=== PATIENT | female | born 1950 | race Hispanic/Latino ===

== ENCOUNTER 2023-09-14 12:26 | Observation (INO) | payer OTHER ==
--- NOTE | 2023-09-14 13:33 | RAD REPORT ---
EXAM DESCRIPTION: RAD - Chest Single View - 09/14/2023 1:23 pm CLINICAL HISTORY: CHEST PAIN COMPARISON: No comparisons FINDINGS: Lines: None. Lungs: Ill-defined opacities present at the lung bases bilaterally. Pleural: Blunting at the right costophrenic angle. Cardiac: Heart size at upper limits of normal. Mediastinum: Within normal limits. Bones: No acute fractures. Other: None IMPRESSION: Nonspecific mild ill-defined basilar opacities could reflect an acute infectious or infl ammatory process versus chronic changes. No priors available for comparison.
--- NOTE | 2023-09-14 13:35 | RAD REPORT ---
EXAM DESCRIPTION: CT - Head Brain Wo Cont - 09/14/2023 1:23 pm CLINICAL HISTORY: SYNCOPE COMPARISON: No comparisons TECHNIQUE: All CT scans are performed using dose optimization technique as appropriate and may inclu de automated exposure control or mA/KV adjustment according to patient size. FINDINGS: No intracranial hemorrhage, hydrocephalus or extra-axial fluid collection.No areas of brai n edema or evidence of midline shift. Procedural changes at the right globe. The paranasal sinuses and mastoids are clear. The calvarium is intact. IMPRESSION: No acute intracranial abnormality.
[2023-09-14] MEDS ORDERED: ONDANSETRON 4 MG/2 ML VIAL ONE (13:39)
[2023-09-14] MEDS ORDERED: FAMOTIDINE 20 MG/2 ML VIAL IV ONE (13:39)
[2023-09-14] MEDS ORDERED: NA CHLORIDE 0.9% 1,000 ML ONE (13:40)
[2023-09-14 13:43] LABS: Absolute Basophils 0.1 K/uL (0-0.5); Absolute Eosinophils 0.3 K/uL (0-0.5); Absolute Neutrophil 11.9 K/uL (1.8-8.0); Basophils % 0.7 % (0-1.3); Eosinophils % 2.2 % (0-4.4); Hematocrit 37.8 % (36.0-45.0); Hemoglobin 12.1 g/dL (12.0-15.0); MCH 26.8 pg (27.0-35.0); MCV 83.7 fL (80-100); MPV 8.3 fL (7.6-11.3); Monocytes % 6.6 % (3.3-12.3); Neutrophils % 77.5 % (41.7-73.7); Platelets 231 thou/uL (152-406); RBC Red Blood Cell Count 4.52 M/uL (3.86-4.86)
[2023-09-14 13:57] LABS: PT Prothrombin Time 11.8 SECONDS (9.4-12.5); Protime INR 1.06
[2023-09-14 14:00] LABS: Albumin 3.5 g/dL (3.4-5.0); Albumin/Globulin Ratio 0.9 (1.1-1.8); Anion Gap 11.1 mEq/L (5.0-15.0); Bilirubin Direct 0.3 mg/dL (0-0.2); Bilirubin Indirect, Calculated 0.4 mg/dL (0.2-0.8); Bilirubin Total 0.7 mg/dL (0.2-1.0); Globulin 3.9 g/dL (2.3-3.5); Magnesium 1.7 mg/dL (1.6-2.4); Potassium 3.1 mEq/L (3.5-5.1); Protein, Total 7.4 g/dL (6.4-8.2)
--- NOTE | 2023-09-14 14:52 | EDPHYS ---
Physician Documentation [facility] Name: Kinga Alfredo Age: 72 yrs Sex: Female : 1950 Arrival Date: 09/14/2023 Time: 12:26 Bed 16 Private MD: ED Physician Richard Ferris HPI: 09/13 14:46 This 72 yrs old Female presents to ER via EMS with complaints of syncope , sp elham cpr, weak. 14:46 got overheated , syncope, family did compressions. The patient has experienced syncope, elham The patient has experienced near-syncope. Onset: The symptoms/episode began/occurred just prior to arrival. Duration: This was a single episode, that lasted an unknown period of time. Context: the episode(s) was witnessed, by family. Associated injury: The patient did not suffer any apparent associated injury. Associated signs and symptoms: Pertinent positives: lightheadedness, vomiting, weakness. Severity of symptoms: At their worst the symptoms were moderate in the emergency department the symptoms have improved moderately. The patient has not experienced similar symptoms in the past. Historical: - Allergies: 16:24 No Known Allergies; ph - PMHx: 12:44 Diabetes mellitus; Hypertensive disorder; ph - Immunization history:: Adult Immunizations unknown. - Infectious Disease History:: Denies. - Social history:: Smoking status: unknown. - Family history:: not pertinent. ROS: 14:46 Constitutional: Negative for fever, chills, and weight loss, Eyes: Negative for injury, elham pain, redness, and discharge, ENT: Negative for injury, pain, and discharge, Neck: Negative for injury, pain, and swelling, Cardiovascular: Negative for chest pain, palpitations, and edema, Respiratory: Negative for shortness of breath, cough, wheezing, and pleuritic chest pain, Abdomen/GI: Negative for abdominal pain, nausea, vomiting, diarrhea, and constipation, Back: Negative for injury and pain, : Negative for injury, bleeding, discharge, and swelling, MS/Extremity: Negative for injury and deformity, Skin: Negative for injury, rash, and discoloration, Psych: Negative for depression, anxiety, suicide ideation, homicidal ideation, and hallucinations, Allergy/Immunology: Negative for hives, rash, and allergies, Endocrine: Negative for neck swelling, polydipsia, polyuria, polyphagia, and marked weight changes, Hematologic/Lymphatic: Negative for swollen nodes, abnormal bleeding, and unusual bruising, 14:46 Neuro: Positive for syncope, near syncope, weakness, Exam: 14:46 Constitutional: This is a well developed, well nourished patient who is awake, alert, elham and in no acute distress. Head/Face: Normocephalic, atraumatic. Eyes: Pupils equal round and reactive to light, extra-ocular motions intact. Lids and lashes normal. Conjunctiva and sclera are non-icteric and not injected. Cornea within normal limits. Periorbital areas with no swelling, redness, or edema. ENT: Nares patent. No nasal discharge, no septal abnormalities noted. Tympanic membranes are normal and external auditory canals are clear. Oropharynx with no redness, swelling, or masses, exudates, or evidence of obstruction, uvula midline. Mucous membranes moist. Neck: Trachea midline, no thyromegaly or masses palpated, and no cervical lymphadenopathy. Supple, full range of motion without nuchal rigidity, or vertebral point tenderness. No Meningismus. Chest/axilla: Normal chest wall appearance and motion. Nontender with no deformity. No lesions are appreciated. Cardiovascular: Regular rate and rhythm with a normal S1 and S2. No gallops, murmurs, or rubs. Normal PMI, no JVD. No pulse deficits. Respiratory: Lungs have equal breath sounds bilaterally, clear to auscultation and percussion. No rales, rhonchi or wheezes noted. No increased work of breathing, no retractions or nasal flaring. Abdomen/GI: Soft, non-tender, with normal bowel sounds. No distension or tympany. No guarding or rebound. No evidence of tenderness throughout. Back: No spinal tenderness. No costovertebral tenderness. Full range of motion. Female : Normal external genitalia. Skin: Warm, dry with normal turgor. Normal color with no rashes, no lesions, and no evidence of cellulitis. MS/ Extremity: Pulses equal, no cyanosis. Neurovascular intact. Full, normal range of motion. Neuro: Awake and alert, GCS 15, oriented to person, place, time, and situation. Cranial nerves II-XII grossly intact. Motor strength 5/5 in all extremities. Sensory grossly intact. Cerebellar exam normal. Normal gait. Psych: Awake, alert, with orientation to person, place and time. Behavior, mood, and affect are within normal limits. 14:46 Musculoskeletal/extremity: DVT Exam: No signs of deep vein thrombosis. no pain, no swelling, no tenderness, negative Homans' sign noted on exam, no appreciated bluish discoloration, no erythema, no increased warmth, 14:55 ECG was reviewed by the Attending Physician. elham Vital Signs: 12:40 BP 117 / 56; Pulse 79; Resp 18; Temp 96.8; Pulse Ox 100% on R/A; ph 14:00 BP 122 / 73; Pulse 70; Resp 18; Pulse Ox 98% on R/A; ph 15:00 BP 129 / 59; Pulse 68; Resp 16; Pulse Ox 99% on R/A; ph 16:00 BP 123 / 58; Pulse 79; Resp 16; Pulse Ox 99% on R/A; ph NIH Stroke Scale Scores: 14:46 NIHSS Score: 0 elham MDM: 12:34 Patient medically screened. elham 12:35 Patient medically screened. elham 14:48 Differential Diagnosis altered mental status, sepsis, flu. Differential Diagnosis: elham aortic aneurysm, cardiac arrhythmia, cerebrovascular accident, emotional response, GI bleed, idiopathic syncope, pseudo seizure, seizure, sepsis, transient ischemic attack, vasovagal episode. Data reviewed: vital signs, nurses notes, lab test result(s), EKG, radiologic studies, CT scan, plain films. Consideration of Admission/Observation Patient was admitted/placed on observation. Escalation of care including admission/observation considered. I considered the following discharge prescriptions or medication management in the emergency department Medications were administered in the Emergency Department. See MAR. Independent interpretation of the following test(s) in the Emergency Department EKG: See my EKG interpretation above. Test considered but Not performed: MRI: no mri brain. 09/13 12:38 Order name: Basic Metabolic Panel; Complete Time: 14:28 [facility] 09/13 12:38 Order name: CBC with Diff; Complete Time: 14:28 [facility] 09/13 12:38 Order name: LFT's; Complete Time: 14:28 [facility] 09/13 12:38 Order name: Magnesium; Complete Time: 14:28 [facility] 09/13 12:38 Order name: NT PRO-BNP; Complete Time: 14:28 [facility] 09/13 12:38 Order name: PT-INR; Complete Time: 14:28 [facility] 09/13 12:38 Order name: Troponin HS; Complete Time: 14:28 [place] 09/13 12:38 Order name: Lipase; Complete Time: 14:28 [place] 09/13 12:38 Order name: CPK; Complete Time: 14:28 [place] 09/13 12:38 Order name: Urinalysis w/ reflexes elham 09/13 14:44 Order name: Blood Culture Adult (2) elham 09/13 16:55 Order name: T4 Free EDMS 09/13 16:55 Order name: Thyroid Stimulating Hormone EDMS 09/13 16:55 Order name: Urinalysis w/ reflexes EDMS 09/13 16:55 Order name: Basic Metabolic Panel EDMS 09/13 16:55 Order name: Basic Metabolic Panel EDMS 09/13 16:55 Order name: CBC with Automated Diff EDMS 09/13 16:55 Order name: CBC with Automated Diff EDMS 09/13 16:55 Order name: Lipid Profile EDMS 09/13 16:55 Order name: Lipid Profile EDMS 09/13 16:55 Order name: Magnesium EDMS 09/13 16:55 Order name: Magnesium EDMS 09/13 16:55 Order name: Phosphorus EDMS 09/13 16:55 Order name: Phosphorus EDMS 09/13 16:55 Order name: Troponin High Sensitivity EDMS 09/13 16:55 Order name: Troponin High Sensitivity EDMS 09/13 16:55 Order name: Troponin High Sensitivity EDMS 09/13 12:38 Order name: XRAY Chest (1 view); Complete Time: 14:28 [place] 09/13 13:13 Order name: CT Head Brain wo Cont; Complete Time: 14:28 [place] 09/13 14:29 Order name: CT Chest Abdomen Pelvis W/O Contrast elham 09/13 16:55 Order name: Echo with Doppler EDMS 09/13 16:55 Order name: Echo with Doppler EDMS 09/13 12:38 Order name: EKG; Complete Time: 12:39 [place] 09/13 12:38 Order name: Cardiac monitoring; Complete Time: 14:17 [place] 09/13 12:38 Order name: EKG - Nurse/Tech; Complete Time: 14:17 [place] 09/13 12:38 Order name: IV Saline Lock; Complete Time: 14:17 [place] 09/13 12:38 Order name: Labs collected and sent; Complete Time: 14:17 [place] 09/13 12:38 Order name: O2 Per Protocol; Complete Time: 14:17 [facility] 09/13 12:38 Order name: O2 Sat Monitoring; Complete Time: 14:17 [facility] 09/13 14:29 Order name: PO challenge: gatorade; Complete Time: 16:15 [facility] 09/13 14:45 Order name: Misc. Order: get ua; Complete Time: 16:14 [facility] EC:55 Rate is 80 beats/min. Rhythm is regular. QRS [place] is Normal. LA interval is normal. QRS elham interval is normal. QT interval is normal. No Q waves. T waves are Normal. No ST changes noted. Clinical impression: NSR w/ Non-specific ST/T Changes and No evidence of ischemia. Interpreted by me. Reviewed by me. Administered Medications: 14:00 Drug: Famotidine IVP 20 mg IVP once; dilute with 10 mL 0.9% NaCl; give over 2 minutes ph Route: IVP; Site: left forearm; 19:40 Follow up: Response: No adverse reaction al5 19:41 Follow up: Response: No adverse reaction al5 14:00 Drug: Ondansetron IVP 4 mg IVP once; over 2 minutes Route: IVP; Site: left forearm; ph 19:40 Follow up: Response: No adverse reaction al5 14:16 Drug: NS 0.9% IV 1000 ml IV at 1 bolus Per protocol; 1000 mL bolus Route: IV; Rate: 1 ph bolus; Site: left forearm; 19:41 Follow up: Response: No adverse reaction; IV Status: Completed infusion; IV Intake: al5 1000ml 14:17 Not Given (1 liter given by EMS): ns 0.9% 1000 ml IV at 1 bolus Per protocol; 1000 mL ph bolus 16:14 Drug: levofloxacin IVPB 500 mg 100 ml IVPB once over 60 mins Volume: 100 ml; Route: ph IVPB; Infused Over: 60 mins; Site: left forearm; 19:40 Follow up: Response: No adverse reaction; IV Status: Completed infusion; IV Intake: al5 100ml 16:16 Drug: Potassium PO Effervescent Tablet 50 mEq PO once; dissolve in 4 ounces of water or ph juice Route: PO; 19:40 Follow up: Response: No adverse reaction al5 Disposition Summary: 08/07/24 14:52 Hospitalization Ordered Notes: Hospitalization Status: Inpatient Admission elham Provider: Marissa Ledesma cha Location: Telemetry/MedSurg (Inpatient) elham Condition: Fair elham Problem: new elham Symptoms: have improved elham Bed/Room Type: Standard elham Room Assignment: 217(09/14/23 17:34) bd Diagnosis - Heat exhaustion, unspecified elhma - Syncope Near elham - Heat syncope elham - Hypokalemia elham - Elevated white blood cell count elham Forms: - Medication Reconciliation Form elham - SBAR form elham - Leadership Thank You Letter elham NIH Stroke Scale - NIH Stroke Score Date: 09/14/2023 Time: 14:46 Total Score = 0 10. Dysarthria (speech clarity - read or repeat words) - 0(Normal) 11. Extinction and Inattention (visual/tactile/auditory/spatial/personal) - 0(No abnormality) 1a. Level of Consciousness (LOC) - 0(Alert) 1b. Level of Consciousness (LOC) (Month \T\ Age) - 0(Both) 1c. LOC Commands (Open \T\ Closes Eyes/Senior Software Quality Analyst) - 0(Both) 2. Best Gaze (Lateral Gaze Paresis) - 0(Normal) 3. Visual Field Loss - 0(No visual loss) 4. Facial Palsy - 0(Normal) 5a. Left Arm: Motor (10-second hold) - 0(No drift) 5b. Right Arm: Motor (10-second hold) - 0(No drift) 6a. Left Leg: Motor (5-second hold - always test supine) - 0(No drift) 6b. Right Leg: Motor (5-second hold - always test supine) - 0(No drift) 7. Limb Ataxia (finger/nose \T\ heel/ingram - test with eyes open) - 0(Absent) 8. Sensory Loss (pinprick arms/legs/face) - 0(Normal) 9. Best Language: Aphasia (description/naming/reading) - 0(No aphasia) Initials: elham Signatures: Dispatcher [employer] EDMS Krissy Engle Corey, MD MD cha Hall, Patricia, RN RN Lindsay Montes RN al5 Corrections: (The following items were deleted from the chart) 13:14 13:14 Head Brain Wo [id number].BRZ ordered. EDMS EDMS 17:34 14:52 elham bd
--- NOTE | 2023-09-14 14:52 | ER ---
Nurse's Notes [facility] Name: Kinga Alfredo Age: 72 yrs Sex: Female : 1950 Arrival Date: 09/14/2023 Time: 12:26 Bed 16 Private MD: Diagnosis: Heat exhaustion, unspecified;Syncope Near;Heat syncope;Hypokalemia;Elevated white blood cell count Presentation: 09/13 12:40 Chief complaint: EMS states: Had a syncopal episode while working in yard, witnessed by ph family who started compressions on pt, when EMS arrived pt was sitting on couch awake, covered in vomit. Stable VS, BGL 150s, 1 liter NS and 10mg Reglan given. Coronavirus screen: Vaccine status: Patient reports receiving the 2nd dose of the covid vaccine. Ebola Screen: No symptoms or risks identified at this time. Initial Sepsis Screen: Does the patient meet any 2 criteria? No. Patient's initial sepsis screen is negative. Does the patient have a suspected source of infection? No. Patient's initial sepsis screen is negative. Risk Assessment: Do you want to hurt yourself or someone else?. Onset of symptoms was September 14, 2023. 12:40 Method Of Arrival: EMS: [facility] 12:40 Acuity: [place] 3 Triage Assessment: 12:45 General: Appears in no apparent distress. Behavior is cooperative, quiet. Pain: ph Complains of pain in chest. Neuro: Level of Consciousness is obeys commands, lethargic, Oriented to person, place, time, situation, Reports a syncopal episode. Cardiovascular: Capillary refill < 3 seconds in bilateral fingers Patient's skin is warm and dry. Respiratory: Airway is patent Respiratory effort is even, unlabored. GI: Reports nausea, vomiting, Patient currently denies abdominal pain. Historical: - Allergies: 16:24 No Known Allergies; ph - PMHx: 12:44 Diabetes mellitus; Hypertensive disorder; ph - Immunization history:: Adult Immunizations unknown. - Infectious Disease History:: Denies. - Social history:: Smoking status: unknown. - Family history:: not pertinent. Screenin:23 [place] ED Fall Risk Assessment (Adult) History of falling in the last 3 months, ph including since admission Yes- physiologic fall (2 pts) Confusion or Disorientation No (0 pts) Intoxicated or Sedated No (0 pts) Impaired Gait No (0 pts) Mobility Assist Device Used Yes (1 pt) Altered Elimination No (0 pt) Score/Fall Risk Level 3 or more points = High Risk Oriented to surroundings, Maintained a safe environment, Hourly rounding (assess needs \T\ fall precautionary measures) done, Used ambulatory aids as needed (educated on \T\ assisted with). Abuse screen: Denies threats or abuse. Denies injuries from another. Nutritional screening: No deficits noted. Tuberculosis screening: No symptoms or risk factors identified. Assessment: 13:15 General: Appears in no apparent distress. Behavior is calm, cooperative. Pain: Denies ph pain. Neuro: Level of Consciousness is awake, alert, obeys commands, Oriented to person, place, situation. Neuro: Reports a syncopal episode weakness. Cardiovascular: Capillary refill < 3 seconds in bilateral fingers Patient's skin is warm and dry. Respiratory: Airway is patent Respiratory effort is even, unlabored, Respiratory pattern is regular, symmetrical. GI: Parent/caregiver reports the patient having vomiting. Derm: Skin is pink, warm \T\ dry. Musculoskeletal: Circulation, motion, and sensation intact. Range of motion: intact in all extremities. 15:00 Reassessment: Patient appears in no apparent distress at this time. Patient and/or ph family updated on plan of care and expected duration. Pain level reassessed. Patient is alert, oriented x 3, equal unlabored respirations, skin warm/dry/pink. 16:30 Reassessment: Patient appears in no apparent distress at this time. Patient and/or ph family updated on plan of care and expected duration. Pain level reassessed. Patient is alert, oriented x 3, equal unlabored respirations, skin warm/dry/pink. 18:20 Reassessment: Patient appears in no apparent distress at this time. Patient and/or ph family updated on plan of care and expected duration. Pain level reassessed. Patient is alert, oriented x 3, equal unlabored respirations, skin warm/dry/pink. Report faxed to 2nd floor. Vital Signs: 12:40 BP 117 / 56; Pulse 79; Resp 18; Temp 96.8; Pulse Ox 100% on R/A; ph 14:00 BP 122 / 73; Pulse 70; Resp 18; Pulse Ox 98% on R/A; ph 15:00 BP 129 / 59; Pulse 68; Resp 16; Pulse Ox 99% on R/A; ph 16:00 BP 123 / 58; Pulse 79; Resp 16; Pulse Ox 99% on R/A; ph Vitals: 16:00 Cardiac Rhythm Assessment Sinus rhythm. ph NIH Stroke Scale Scores: 14:46 NIHSS Score: 0 [facility] ED Course: 12:34 Patient arrived in ED. elham 12:35 Richard Ferris MD is Attending Physician. elham 12:38 Sara Staples, RN is Primary Nurse. ph 12:44 Triage completed. ph 12:46 Arm band placed on Patient placed in an exam room, on a stretcher. ph 13:24 CT Head Brain wo Cont In Process Unspecified. EDMS 13:25 XRAY Chest (1 view) In Process Unspecified. EDMS 13:30 Initial lab(s) drawn, by me, sent to lab. Maintain EMS IV. Dressing intact. Good blood ph return noted. Site clean \T\ dry. Gauge \T\ site: 18 LFA. IV with fluids infusing freely, with good blood return, Flushed left forearm with 5 ml normal saline. Maintain EMS IV. Dressing intact. Good blood return noted. Site clean \T\ dry. Gauge \T\ site: 18 RAC. IV with fluids infusing freely, with good blood return, Flushed right antecubital with 5 ml normal saline. 14:43 CT Chest Abdomen Pelvis W/O Contrast In Process Unspecified. EDMS 14:51 Marissa Ledesma MD is Hospitalizing Provider. [facility] 14:53 EKG done, by ED staff, reviewed by Richard Ferris MD. em1 15:55 Urine collected: clean catch specimen, kathleen colored. ph 16:24 Patient has correct armband on for positive identification. Bed in low position. Call ph light in reach. Side rails up X2. Placed in gown. Pulse ox on. NIBP on. 16:24 No provider procedures requiring assistance completed. Patient admitted, IV remains in ph place. 19:38 Primary Nurse role handed off by Sara Staples, ALYSSA al5 19:38 Lindsay Montes RN is Primary Nurse. al5 19:38 Provided Education on: need for admission. al5 Administered Medications: 14:00 Drug: Famotidine IVP 20 mg IVP once; dilute with 10 mL 0.9% NaCl; give over 2 minutes ph Route: IVP; Site: left forearm; 19:40 Follow up: Response: No adverse reaction al5 19:41 Follow up: Response: No adverse reaction al5 14:00 Drug: Ondansetron IVP 4 mg IVP once; over 2 minutes Route: IVP; Site: left forearm; ph 19:40 Follow up: Response: No adverse reaction al5 14:16 Drug: NS 0.9% IV 1000 ml IV at 1 bolus Per protocol; 1000 mL bolus Route: IV; Rate: 1 ph bolus; Site: left forearm; 19:41 Follow up: Response: No adverse reaction; IV Status: Completed infusion; IV Intake: al5 1000ml 14:17 Not Given (1 liter given by EMS): ns 0.9% 1000 ml IV at 1 bolus Per protocol; 1000 mL ph bolus 16:14 Drug: levofloxacin IVPB 500 mg 100 ml IVPB once over 60 mins Volume: 100 ml; Route: ph IVPB; Infused Over: 60 mins; Site: left forearm; 19:40 Follow up: Response: No adverse reaction; IV Status: Completed infusion; IV Intake: al5 100ml 16:16 Drug: Potassium PO Effervescent Tablet 50 mEq PO once; dissolve in 4 ounces of water or ph juice Route: PO; 19:40 Follow up: Response: No adverse reaction al5 Medication: 16:24 VIS not applicable for this client. ph Intake: 19:40 IV: 100ml; Total: 100ml. al5 19:41 IV: 1000ml; Total: 1100ml. al5 Outcome: 14:52 Decision to Hospitalize by Provider. elham 19:38 Admitted to Med/surg accompanied by benja, via wheelchair, room 217, with chart, al5 19:38 Condition: good 19:38 Instructed on the need for admit, 19:41 Patient left the ED. al5 NIH Stroke Scale - NIH Stroke Score Date: 09/14/2023 Time: 14:46 Total Score = 0 10. Dysarthria (speech clarity - read or repeat words) - 0(Normal) 11. Extinction and Inattention (visual/tactile/auditory/spatial/personal) - 0(No abnormality) 1a. Level of Consciousness (LOC) - 0(Alert) 1b. Level of Consciousness (LOC) (Month \T\ Age) - 0(Both) 1c. LOC Commands (Open \T\ Closes Eyes/Hand Turner) - 0(Both) 2. Best Gaze (Lateral Gaze Paresis) - 0(Normal) 3. Visual Field Loss - 0(No visual loss) 4. Facial Palsy - 0(Normal) 5a. Left Arm: Motor (10-second hold) - 0(No drift) 5b. Right Arm: Motor (10-second hold) - 0(No drift) 6a. Left Leg: Motor (5-second hold - always test supine) - 0(No drift) 6b. Right Leg: Motor (5-second hold - always test supine) - 0(No drift) 7. Limb Ataxia (finger/nose \T\ heel/ingram - test with eyes open) - 0(Absent) 8. Sensory Loss (pinprick arms/legs/face) - 0(Normal) 9. Best Language: Aphasia (description/naming/reading) - 0(No aphasia) Initials: elham Signatures: Dispatcher [employer] Richard Oneill MD MD cha Martinez, Eric em1 Sara Staples, RN RN Lindsay Montes RN RN al5
--- NOTE | 2023-09-14 14:58 | RAD REPORT ---
EXAM DESCRIPTION: CTChest Abd Pelvis Wo Con - 09/14/2023 2:41 pm CLINICAL HISTORY: Cough;Abdominal distention COMPARISON: Chest Single View dated 09/14/2023; Head Brain Wo Cont dated 09/14/2023 TECHNIQUE: CT of the chest, abdomen, and pelvis was performed. All CT scans are performed using dose optimization technique as appropriate and may include automated exposure control or mA/KV adjustment according to patient size. FINDINGS: Thorax: Chest Wall: No abnormal mass Lungs: Mild dependent atelectasis. No acute process in the lungs. Several small scattered sub 4 mm pu lmonary nodules of doubtful significance. Pleura: No effusions or pneumothorax. Karla/Mediastinum: No lymphadenopathy. Aorta/Pulmonary Arteries: Unremarkable Heart: Normal size. Mild coronary calcifications. Abdomen/Pelvis: Liver: Partial right hepatectomy. Biliary: Cholecystectomy. Biliary duct dilatation is likely related to the postcholecystectomy state. Stomach: No significant focal abnormality. Duodenum: No significant focal abnormality. Pancreas: No significant abnormality. Spleen: No significant abnormality. Adrenal: No suspicious lesions. Kidney/ureter: No hydronephrosis. No renal calculi. Retroperitoneum: No retroperitoneal adenopathy. Vascular: No aneurysm. Mild atherosclerosis . Bowel: Normal appendix. No bowel obstruction.. Diverticulosis without diverticulitis . Peritoneum: No ascites or free air. Bladder: Grossly unremarkable. Reproductive: No adnexal masses. Bones: Grade 2 anterolisthesis of L5 on S1. T11 and likely T9 hemangiomas. Remote sternal fracture. Other: n/a IMPRESSION: No acute findings within the chest, abdomen, or pelvis. Incidental findings as noted abo ve.
[2023-09-14] MEDS ORDERED: POTASSIUM 25 MEQ EFFERV TAB ONE (15:14)
[2023-09-14] MEDS ORDERED: Levofloxacin500mg IV 500 MG/100 ML BAG IV ONE (15:14)
[2023-09-14 16:26] LABS: Specific Gravity 1.015 (1.005-1.030); Sqamous Epithelial <5 /HPF (None Seen); Urine Bacteria None Seen /HPF (<20); Urine Bilirubin NEGATIVE (Negative); Urine Blood Negative (Negative); Urine Clarity Clear (Clear); Urine Color Light-Yellow (Yellow); Urine Culture Reflex Order NOT NEEDED; Urine Glucose NEGATIVE (Negative); Urine Ketones TRACE (Negative); Urine Microscopic Reflex YN ORDER UMIC; Urine Mucus Slight /HPF (None Seen); Urine Nitrite NEGATIVE (Negative); Urine Protein NEGATIVE (Negative); Urine RBC <5 /HPF (None Seen); Urine Urobilinogen Normal (Normal); Urine WBC <5 /HPF (<5); Urine pH 5.5 (5.0-7.0)
[2023-09-14] MEDS ORDERED: ACETAMINOPHEN 500 MG TAB PO PRN (16:49)
[2023-09-14] MEDS ORDERED: MORPHINE 2 MG/ML SYR IV PRN (16:49)
--- NOTE | 2023-09-14 16:55 | P.HP ---
Certification for Inpatient Patient admitted to: Observation With expected LOS: <2 Midnights Patient will require the following post-hospital care: None Practitioner: I am a practitioner with admitting privileges, knowledge of patient current condition, hospital course, and medical plan of care. Services: Services provided to patient in accordance with Admission requirements found in Title 42 Section 412.3 of the Code of Federal Regulations Patient History Date of Service: 09/14/23 Reason for admission: Syncopal episode History of Present Illness: Kinga Alfredo is a 72 year old female with Pmhx Physical Examination - Studies Laboratory Data (last 24 hrs) 09/14/23 09/14/23 09/14/23 13:35 13:35 13:35 WBC 15.40 H Hgb 12.1 Hct 37.8 Plt Count 231 PT 11.8 INR 1.06 Sodium 136 Potassium 3.1 L BUN 15 Creatinine 0.92 Glucose 123 H Magnesium 1.7 Total Bilirubin 0.7 AST 18 ALT 21 Alkaline Phosphatase 104 Lipase 36 Assessment and Plan - Advance Directives Does patient have a Living Will: No Does patient have a Durable POA for Healthcare: No
[2023-09-14] MEDS: HEPARIN 5000 UNIT/ML 1 ML VIAL SQ SCH (17:00)
--- NOTE | 2023-09-14 17:28 | P.HP ---
Certification for Inpatient Patient admitted to: Observation With expected LOS: <2 Midnights Practitioner: I am a practitioner with admitting privileges, knowledge of patient current condition, hospital course, and medical plan of care. Services: Services provided to patient in accordance with Admission requirements found in Title 42 Section 412.3 of the Code of Federal Regulations Patient History Date of Service: 09/14/23 Reason for admission: Syncopal episode History of Present Illness: 72-year-old Danish-speaking man with a history of hypertension, diabetes, hyperlipidemia was brought to the emergency department due to reported syncopal episode at home. Patient is Danish-speaking and could not provide much history. Family by the bedside mention patient was going up a few steps and suddenly passed out prompting him to the floor. Patient was unresponsive for unspecified minutes, family performed CPR. Family report that prior to the event, patient was working in the heat outside. Per report EMS found him with pulse and stable blood pressure. Patient was evaluated in the ER noted to have elevated WBC and hypokalemia. Images done in the ED including head CT, CT chest abdomen pelvis all unremarkable, EKG unremarkable with no arrhythmia, ischemic changes. Patient is placed on observation for further workup. - Past Medical/Surgical History -: Hypertension -: Type 2 diabetes -: Hyperlipidemia -: Chronic pain -: Partial hepatectomy - Social History Smoking Status: Never smoker Alcohol use: No Place of Residence: Home Review of Systems Other: No reported fever or diarrhea or nausea or vomiting. No reported seizure. Patient denies any limb weakness. Patient denies any headache Except as documented, all other systems reviewed and negative. Physical Examination - Physical Exam General: Alert, In no apparent distress, Oriented x3 HEENT: Atraumatic, PERRLA, Sclerae nonicteric Neck: Supple, JVD not distended Respiratory: Clear to auscultation bilaterally, Normal air movement Cardiovascular: No edema, Regular rate/rhythm, Normal S1 S2 Capillary refill: <2 Seconds Gastrointestinal: Normal bowel sounds, Soft and benign, Non-distended, No tenderness Musculoskeletal: No swelling, No tenderness Integumentary: No rashes, No cyanosis Neurological: Normal speech, Normal strength at 5/5 x4 extr, Cranial nerves 3-12 intact Lymphatics: No axilla or inguinal lymphadenopathy - Studies Laboratory Data (last 24 hrs) 09/14/23 09/14/23 09/14/23 13:35 13:35 13:35 WBC 15.40 H Hgb 12.1 Hct 37.8 Plt Count 231 PT 11.8 INR 1.06 Sodium 136 Potassium 3.1 L BUN 15 Creatinine 0.92 Glucose 123 H Magnesium 1.7 Total Bilirubin 0.7 AST 18 ALT 21 Alkaline Phosphatase 104 Lipase 36 Assessment and Plan - Problems (Diagnosis) (1) Syncope and collapse Current Visit: Yes Status: Acute (2) Leukocytosis Current Visit: Yes Status: Acute (3) Essential hypertension Current Visit: Yes Status: Acute - Plan Syncope Possibly heatstroke Place patient under observation Hydrate with IV normal saline Cardiac monitoring. Check orthostatic vitals. Echocardiogram. Trend troponin. Essential hypertension Hold antihypertensives until patient is hypertensive. DM type II Hold metformin Insulin sliding scale for glucose management. Leukocytosis Likely secondary to dehydration. No fever. UA negative, no identified source of infection Monitor CBC. No indication for antibiotics at this time. Hypokalemia Replace potassium as needed. DVT prophylaxis: Lovenox Advanced directive: full code - Advance Directives Does patient have a Living Will: No Does patient have a Durable POA for Healthcare: No
[2023-09-14] MEDS: NA CHLORIDE 0.9% 1,000 ML IV SCH (21:00)
[2023-09-14 22:03] LABS: Thyroid Stimulating Hormone 0.006 uIU/mL (0.358-3.740)
[2023-09-14 23:43] VITALS: BMI 21.5
[2023-09-15 05:37] LABS: Absolute Basophils 0.1 K/uL (0-0.5); Absolute Eosinophils 0.3 K/uL (0-0.5); Absolute Lymphocytes (CBC) 2.1 K/uL (0.7-4.9); Absolute Monocytes 0.7 K/uL (0.1-1.3); Absolute Neutrophil 5.2 K/uL (1.8-8.0); Basophils % 0.6 % (0-1.3); Eosinophils % 3.6 % (0-4.4); Hematocrit 34.3 % (36.0-45.0); Hemoglobin 11.6 g/dL (12.0-15.0); Lymphocytes % 25.4 % (15.3-44.8); MCH 27.6 pg (27.0-35.0); MCHC 33.8 g/dL (32.0-36.0); MCV 81.7 fL (80-100); MPV 8.1 fL (7.6-11.3); Monocytes % 8.3 % (3.3-12.3); Neutrophils % 62.1 % (41.7-73.7); Nucleated Red Blood Cells % 0.3 % (0-0); Platelets 214 thou/uL (152-406); RBC Red Blood Cell Count 4.19 M/uL (3.86-4.86)
[2023-09-15 05:39] LABS: Anion Gap 9.6 mEq/L (5.0-15.0); Magnesium 1.7 mg/dL (1.6-2.4); Phosphorus 3.3 mg/dL (2.5-4.9); Potassium 3.6 mEq/L (3.5-5.1); Troponin High Sensitivity 6.5 pg/mL (<58.9)
[2023-09-15] MEDS: POTASSIUM 25 MEQ EFFERV TAB PO ONE (08:09)
[2023-09-15] MEDS: MAGNESIUM SULFATE 1 gm IVPB 1 GM/100 ML BAG IV ONE (08:09)
--- NOTE | 2023-09-15 09:01 | P.DS ---
Admission Date: 09/14/23 Discharge Date: 09/15/23 Disposition: ROUTINE DISCHARGE Discharge Condition: FAIR Reason for Admission: Syncopal episode - Problems (1) Syncope and collapse Status: Acute (2) Leukocytosis Status: Acute (3) Essential hypertension Status: Acute Brief History of Present Illness: 72-year-old Hungarian-speaking man with a history of hypertension, diabetes, hyperlipidemia was brought to the emergency department due to reported syncopal episode at home. Patient is Hungarian-speaking and could not provide much history. Family by the bedside mention patient was going up a few steps and suddenly passed out prompting him to the floor. Patient was unresponsive for unspecified minutes, family performed CPR. Family report that prior to the event, patient was working in the heat outside. Per report EMS found him with pulse and stable blood pressure. Patient was evaluated in the ER noted to have elevated WBC and hypokalemia. Images done in the ED including head CT, CT chest abdomen pelvis all unremarkable, EKG unremarkable with no arrhythmia, ischemic changes. Patient w as placed on observation for further workup. Hospital Course: Troponin trended negative. Patient was asymptomatic during the hospital stay. Blood pressure was stable, other vitals were stable. Patient's symptoms likely secondary to dehydration from heat exhaustion. Patient had hypokalemia which was corrected. She also had leukocytosis likely secondary to dehydration which was also corrected. Echocardiogram done was unremarkable with normal EF. Patient is currently asymptomatic with stable vitals. She is deemed stable for discharge. Vital Signs/Physical Exam: Temp Pulse Resp BP Pulse Ox 97.9 F 81 18 139/56 L 98 09/15/23 04:00 09/15/23 04:00 09/15/23 04:00 09/15/23 04:00 09/15/23 04:00 General: Alert, In no apparent distress HEENT: Mucous membr. moist/pink Neck: Supple, JVD not distended Respiratory: Clear to auscultation bilaterally, Normal air movement Cardiovascular: No edema, Regular rate/rhythm, Normal S1 S2 Gastrointestinal: Normal bowel sounds, Soft and benign, Non-distended, No tenderness Musculoskeletal: No swelling Integumentary: No rashes, No cyanosis Neurological: Normal strength at 5/5 x4 extr Lymphatics: No axilla or inguinal lymphadenopathy Laboratory Data at Discharge: WBC 8.40 thou/uL (4.3-10.9) 09/15/23 04:56 Hgb 11.6 g/dL (12.0-15.0) L 09/15/23 04:56 Hct 34.3 % (36.0-45.0) L 09/15/23 04:56 Plt Count 214 thou/uL (152-406) 09/15/23 04:56 PT 11.8 SECONDS (9.4-12.5) 09/14/23 13:35 INR 1.06 09/14/23 13:35 Sodium 140 mEq/L (136-145) 09/15/23 04:56 Potassium 3.6 mEq/L (3.5-5.1) D 09/15/23 04:56 BUN 10 mg/dL (7-18) 09/15/23 04:56 Creatinine 0.73 mg/dL (0.55-1.02) 09/15/23 04:56 Glucose 111 mg/dL (74-106) H 09/15/23 04:56 Phosphorus 3.3 mg/dL (2.5-4.9) 09/15/23 04:56 Magnesium 1.7 mg/dL (1.6-2.4) 09/15/23 04:56 Total Bilirubin 0.7 mg/dL (0.2-1.0) 09/14/23 13:35 AST 18 U/L (15-37) 09/14/23 13:35 ALT 21 U/L (13-56) 09/14/23 13:35 Alkaline Phosphatase 104 U/L (45-117) 09/14/23 13:35 Triglycerides 107 mg/dL (<150) 09/15/23 04:56 Cholesterol 152 mg/dL (<200) 09/15/23 04:56 HDL Cholesterol 65 mg/dL (40-60) H 09/15/23 04:56 Cholesterol/HDL Ratio 2.34 09/15/23 04:56 Lipase 36 U/L (13-75) 09/14/23 13:35 Home Medications: Atorvastatin Calcium [Lipitor] 40 mg PO BEDTIME 09/14/23 Famotidine [Pepcid] 40 mg PO DAILY 09/14/23 Fluoxetine HCl [Prozac] 20 mg PO DAILY 09/14/23 Losartan Potassium [Cozaar] 25 mg PO DAILY 09/14/23 Metformin HCl [Glucophage] 500 mg PO DAILY WITH BREAKFAST 09/14/23 Naproxen 500 mg PO DAILYPRN PRN 09/14/23 hydroCHLOROthiazide [Hydrochlorothiazide] 25 mg PO DAILY 09/14/23 Diet: AHA Activity: Fall precautions Followup: NONE,NONE [Primary Care Provider] - 1-2 Weeks Time spent managing pt's care (in minutes): 26
[2023-09-15 09:38] VITALS: BP 132/59; TEMP 98.5
[2023-09-15 10:04] VITALS: O2SAT 94
--- NOTE | 2023-09-15 13:07 | EKG ---
Test Date: 2023-09-14 Test Time: 14:49:33 Gas Meter Repairer: NIEVESW MEASUREMENT RESULTS: Intervals: Rate: 80 WV: 126 QRSD: 76 QT: 438 QTc: 505 [place]: P: [place]: 126 QRS: 141 T: 129 INTERPRETIVE STATEMENTS: Normal sinus rhythm Left posterior fascicular block Inferior infarct, age undetermined Abnormal ECG No previous ECG available for comparison Electronically Signed On 09-15-23 13:05:20 CDT by Deo Bhakta
--- NOTE | 2023-09-15 13:38 | ECHO ---
HEIGHT: 5 ft 2 in WEIGHT: 118 lb 0 oz DATE OF STUDY: 09/15/[address]: Minerva Logan NP 2-DIMENSIONAL: YES M.MODE: YES DOPPLER: YES COLOR FLOW: YES TDS: PORTABLE: YES DEFINITY: BUBBLE STUDY: DIAGNOSIS: SYNCOPAL EPISODE CARDIAC HISTORY: CATHERIZATION: NO SURGERY: NO PROSTHETIC VALVE: NO PACEMAKER: NO MEASUREMENTS (cm) DIASTOLIC (NORMALS) SYSTOLIC (NORMALS) IVSd 1.2 (0.6-1.2) LA Diam 2.1 (1.9-4.0) LVEF 57% LVIDd 4.0 (3.5-5.7) LVIDs 2.9 (2.0-3.5) %FS 29% LVPWd 1.3 (0.6-1.2) Ao Diam 2.9 (2.0-3.7) 2 DIMENSIONAL ASSESSMENT: RIGHT ATRIUM: POOR WINDOWS LEFT ATRIUM: POOR WINDOWS RIGHT VENTRICLE: POOR WINDOWS LEFT VENTRICLE: POOR WINDOWS TRICUSPID VALVE: POOR WINDOWS MITRAL VALVE: POOR WINDOWS PULMONIC VALVE: POOR WINDOWS AORTIC VALVE: POOR WINDOWS PERICARDIAL EFFUSION: POOR WINDOWS AORTIC ROOT: POOR WINDOWS LEFT VENTRICULAR WALL MOTION: DOPPLER/COLOR FLOW: COMMENTS: 1. EXTREMELY LIMITED EXAM DUE TO POOR WINDOWS 2. OVERALL LEFT VENTRICULAR EJECTION FRACTION APPREARS NORMAL. TECHNOLOGIST: ROLF VARGAS
== END 2023-09-15 11:58 | disposition home or self-care (01) ==
LOC: ER 12:26 → ERHOLD 16:52 → 2ND 18:24
PROVIDERS: ADMIT Internal Medicine; ATTEND Internal Medicine
DX: R55 Syncope and collapse (principal); I10 Essential (primary) hypertension; E11.9 Type 2 diabetes mellitus without complications; E78.5 Hyperlipidemia, unspecified; D72.829 Elevated white blood cell count, unspecified; E87.6 Hypokalemia; E86.0 Dehydration
CPT/HCPCS: 96365; 96361; 93005; 93306; 87040 ×2; 85025 ×2; 81001; 80048 ×2; 36415 ×2; 83735 ×2; 82550; 84100; 85610; 80061; 80076; 84443; 84484 ×3; 84439; 83690; 83880; 70450; 71250; 74176; 71045; 96375; 99285; 96366; J1644 ×2; J3475; J2405; J7030 ×2; G0378